=== PATIENT | female | born 1990 | race Caucasian/White ===

== ENCOUNTER → 2020-05-18 12:19 | Outpatient (REF) | payer OTHER, SELFPAY | LOC: ANHLAB 12:19 | PROVIDERS: Visit Provider Surgery Plastic and Reconstructive Surgery | DX: R22.9 Localized swelling, mass and lump, unspecified (principal) | CPT/HCPCS: 88304 ==

== ENCOUNTER → 2020-08-10 11:34 | Outpatient (CLI) | payer OTHER, SELFPAY ==
--- NOTE | ~2020-08-10 | US_ITS ---
EXAMINATION: US abdomen complete EXAM DATE: 08/10/2020 11:59 INDICATION: Left upper quadrant pain, fullness. TECHNIQUE: Multiple grayscale and Doppler images of the complete abdomen were obtained (by a technolo gist who performed the scan) and subsequently reviewed. There is no prior study for comparison. FINDINGS: The abdominal aorta is normal in caliber. Visualized portion IVC is patent. The pancreatic head a nd body are normal in appearance. The pancreatic tail is not visualized. The liver has normal echogenicity and contour. There is homogeneously hyperechoic 1 cm right liver l obe lesion, most likely benign histology given patient's young age and its sonographic appearance, bu t ultrasound is nonspecific. Optional 6-12 month follow-up sonogram. There is no evidence of intrahe patic biliary duct dilation. Portal venous flow was seen in the hepatopedal, normal direction and whitmore s normal Doppler waveform. Common bile duct measures 5 mm, which is normal. The gallbladder wall is normal in thickness, with ex pected amount of distention. No sonographic evidence of pericholecystic fluid. There is no cholelit hiases. Technologist performing exam reports patient did not demonstrate sonographic Hughes's sign. Please note that this sign is less reliable in patients who have received pain medication. Right kidney: There is normal contour and echogenicity. It measures 10.3 x 4.2 x 5.6 centimeters. T here is a cyst measuring 1.3 cm. There is no hydronephrosis. Left kidney: There is normal contour and echogenicity. It measures 10.3 x 4.9 x 5.2 centimeters. T here are no focal renal lesions identified. There is no hydronephrosis. The spleen measures 10.1 centimeters and is morphologically normal. IMPRESSION: 1. Small nonspecific right liver lobe lesion, likely benign histology; optional 6-12 month follow up right upper quadrant sonogram. 2. Small right renal cyst. 3. No acute findings. Reviewed, dictated and finalized at location B. IMPRESSION: 1. Small nonspecific right liver lobe lesion, likely benign histology; optiona l 6-12 month follow up right upper quadrant sonogram. 2. Small right renal cyst. 3. No acute findings.
== END ==
PROVIDERS: PCP Family Medicine; Visit Provider Family Medicine
DX: R10.12 Left upper quadrant pain (principal); N28.1 Cyst of kidney, acquired
CPT/HCPCS: 76700

== ENCOUNTER 2020-09-13 10:45 | Emergency (ER) | payer OTHER, SELFPAY ==
[2020-09-13 10:55] VITALS: BP 116/82; PULSE 96; RESP 16; TEMP 36.3; O2SAT 100
--- NOTE | 2020-09-13 11:01 | ED.URI ---
HPI - URI/Sore Throat General Chief Complaint: Upper Respiratory Infection Stated Complaint: Fever/Body aches Time Seen by Provider: 09/13/20 11:02 Source: patient and RN notes reviewed History of Present Illness HPI Narrative: Patient is a 29-year-old female who presents the urgent care with complaints of night sweats, body aches, fever and sore throat. 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 Patient states symptoms started on Friday and she tested negative for Covid yesterday. Patient states she has been using Tylenol and ibuprofen as needed for her fevers and body aches. Patient denies of any cough, shortness of breath or chest pain. States that she has noticed increased swelling especially on the right tonsil. No other acute complaints. No acute distress noted. Patient aware of the plan of care. Some parts of this dictation were generated by voice recognition software and may contain typographical and/or grammatical inaccuracies. Related Data Home Medications Medication Instructions Recorded Confirmed Control PO DAILY 05/18/20 07/31/20 esomeprazole magnesium 20 mg 20 mg PO DAILY 05/18/20 07/31/20 tablet,delayed release Zyrtec 09/13/20 Allergies Allergy/AdvReac Type Severity Reaction Status Date / Time No Known Allergies Allergy Verified 07/31/20 10:27 Review of Systems Review of Systems: Narrative: CONSTITUTIONAL: Reports of fever, chills, night sweats EYES: Denies visual changes, redness, or discharge. ENT: Reports of sore throat CARDIOVASCULAR: Denies chest pain, palpitations, or edema. RESPIRATORY: Denies cough or dyspnea. GASTROINTESTINAL: Denies abdominal pain, nausea, vomiting, or diarrhea. GENITOURINARY: Denies dysuria or hematuria. SKIN: Denies rash or itching. MUSCULOSKELETAL: Denies back pain, joint pain. Reports of body aches NEUROLOGIC: Denies headache, numbness, or weakness. All other systems reviewed are negative, except as documented in HPI. FORMERLY [facility], [facility] Past Medical History Medical History (Updated 09/13/20 @ 11:10 by COURTNEY Garcia) LUQ abdominal pain Family History Family History Other Family history of coronary artery disease Family history of malignant neoplasm of breast Social History Social History Smoking status: Never smoker Alcohol intake: current Comments At the time of my signature, I reviewed and agree with the nursing past medical, surgical, social, and family history. There is no relevant family history pertinent to the patient complaint. Exam Narrative: Exam Narrative: GENERAL: This is a well-nourished, well-developed patient, in no apparent distress. HEAD: normocephalic, atraumatic. EYES: PERRL. Sclera clear/white. Vision is grossly intact. EARS: External ears normal, auditory canals clear and without drainage, TMs normal without perforation. Hearing grossly intact. NOSE: External nose normal with no obvious nasal discharge, nares without redness, no rhinorrhea. THROAT: Mucous membranes moist, moderate erythema noted posterior oropharynx with moderate postnasal drainage without exudate, moderate bilateral tonsillar edema NECK: Neck supple, non-tender mild right submandibular lymphadenopathy CARDIOVASCULAR: Regular rate and rhythm without murmurs, gallops, or rubs. RESPIRATORY: Clear to auscultation. Breath sounds equal bilaterally. No wheezes, rales, or rhonchi. SKIN: warm, intact with no suspicious lesions or rash, good texture and turgor. NEURO: awake, alert, and oriented to person, place and time. There were no obvious focal neurologic abnormalities. EXTREMITIES: No clubbing, cyanosis, or edema. Course Vital Signs Vital signs: Vital Signs Temperature 97.3 F L 09/13/20 10:55 Pulse Rate 96 09/13/20 10:55 Respiratory Rate 16 09/13/20 10:55 Blood Pressure 116/82 09/13
== END 2020-09-13 11:24 | disposition home or self-care (01) ==
PROVIDERS: Emergency Provider Nurse Practitioner Family; PCP Family Medicine
DX: J02.9 Acute pharyngitis, unspecified (principal)
CPT/HCPCS: 87081; 87804; 87880; 99213; G0463

== ENCOUNTER → 2021-07-10 09:17 | Outpatient (CLI) | payer OTHER, SELFPAY ==
--- NOTE | ~2021-07-10 | US_ITS ---
EXAMINATION: US abdomen limited DATE: 07/10/2021 10:01 INDICATION: Liver mass. TECHNIQUE: Multiple grayscale and Doppler ultrasound images of the abdomen were obtained. COMPARISON: Ultrasound 08/10/2020 FINDINGS: The visualized portions of the head, body, and tail of the pancreas are normal. There is a 10 mm hyperechoic mass in the liver. No liver surface nodularity. There is normal flow in main portal vein. The gallbladder is normal in size. No gallstones or gallbladder wall thickening. There was no sonographic Hughes sign. The common duct is normal and measures 3 mm. There is a 1.3 cm cyst in right kidney. IMPRESSION: 1. Stable 10 mm hyperechoic liver mass, most likely a hemangioma. Reviewed, dictated and finalized at location A.
--- NOTE | ~2021-07-10 | US_ITS ---
EXAMINATION: US pelvic complete w TV EXAM DATE: 07/10/2021 10:25 INDICATION: R10.84 - Generalized abdominal pain. TECHNIQUE: Pelvic transabdominal and transvaginal sonogram was performed. There are multiple graysca le and Doppler images available for interpretation. There is no prior study for comparison. FINDINGS: Uterus measures 5.9 x 2.7 x 3.7 cm, and is morphologically normal. Endometrial stripe silverio sures 2 mm, within normal limits. There is no free pelvic fluid. Right adnexa: The ovary measures 3.1 x 1.8 x 3.1 cm and is morphologically normal. Ovarian vascular f low confirmed. Left adnexa: The ovary measures 2.4 x 1.7 x 1.6 cm and is morphologically normal. Ovarian vascular fl ow confirmed. IMPRESSION: 1. Unremarkable pelvic ultrasound exam. Reviewed, dictated and finalized at location A.
== END ==
PROVIDERS: PCP Family Medicine; Visit Provider Family Medicine
DX: R16.0 Hepatomegaly, not elsewhere classified (principal); R10.84 Generalized abdominal pain; R14.0 Abdominal distension (gaseous)
CPT/HCPCS: 76705; 76830; 76856

== ENCOUNTER → 2021-10-18 08:09 | Outpatient (CLI) | payer OTHER, SELFPAY ==
[2021-10-22 19:20] LABS: SARS-CoV-2 RNA PCR Negative (Negative)
== END ==
PROVIDERS: PCP Family Medicine; Visit Provider Family Medicine
DX: Z20.822 Contact with and (suspected) exposure to COVID-19 (principal)
CPT/HCPCS: C9803; U0003; U0005

== ENCOUNTER 2024-05-06 14:40 | Outpatient (RCR) | payer OTHER, SELFPAY ==
[2024-05-06 15:17] VITALS: BP 118/70; PULSE 84
== END 2024-08-04 23:59 | disposition home or self-care (01) ==
LOC: ANHOBOP 14:40
PROVIDERS: PCP Student in an Organized Health Care Education/Training Program; Visit Provider Obstetrics & Gynecology
DX: O36.8120 Decreased fetal movements, second trimester, not applicable or unspecified (principal); Z3A.24 24 weeks gestation of pregnancy
CPT/HCPCS: 59025